=== PATIENT | female | born 1995 | race African-American/Black ===

== ENCOUNTER 2017-07-21 16:39 | Emergency (ER) | payer BC ==
[~2017-07-21] VITALS: Ht 154.9 cm; Wt 73.2 kg
[2017-07-21 16:44] VITALS: TEMP 36.5; Ht 154.9 cm; Wt 73.2 kg
[2017-07-21 18:05] LABS: BASO % 0.4 %; BASO ABS # 0.03 K/uL (0-0.2); EOS % 6.3 %; EOS ABS # 0.45 K/uL (0-0.5); HEMATOCRIT 37.5 % (37-47); HEMOGLOBIN 12.1 g/dL (12.0-16.0); IG# 0.01 K/uL (0.00-0.02); LYMPH % 41.9 %; LYMPH ABS # 3.01 K/uL (1.2-3.4); MEAN CELL VOLUME 82.8 fL (80-100); MEAN CORPUSCULAR HEMOGLOBIN 26.7 pg (25-34); MEAN CORPUSCULAR HGB CONC 32.3 g/dl (32-36); MEAN PLATELET VOLUME 11.4 fL (7.4-10.4); MONO % 6.8 %; MONO ABS # 0.49 K/uL (0.11-0.59); NEUT % 44.5 %; PLATELET COUNT 184 K/uL (130-400); RED CELL DISTRIBUTION WIDTH CV 14.8 % (11.5-14.5); RED CELL DISTRIBUTION WIDTH SD 44.9 fL (36.4-46.3); WHITE BLOOD COUNT 7.19 K/uL (4.8-10.8)
[2017-07-21 18:19] LABS: CALCIUM 8.6 mg/dl (8.5-10.1); CREATININE 0.92 mg/dl (0.60-1.20); POTASSIUM 3.6 mmol/L (3.5-5.1)
[2017-07-21 18:21] LABS: PTT PATIENT 28.4 SECONDS (21.0-31.0)
--- NOTE | 2017-07-21 18:58 | DIAGNOSTIC IMAGING REPORT ---
PELVIC COMPLETE NON OB CLINICAL HISTORY: Dysfunctional uterine bleeding COMPARISON STUDY: None FINDINGS: The uterus measured 6.5 cm. The endometrial stripe measured 2 mm. The right ovary measured 3.1 cm maximum dimension with normal vascular flow. The left ovary measured 3.3 cm maximum dimension with normal vascular flow. There is no ultrasonographic evidence of ovarian torsion. It should be noted that ovarian torsion can be present with normal Doppler ultrasonographic findings. There was no evidence of pathologic free pelvic fluid. IMPRESSION: Normal pelvic ultrasound. Multiple small sub-4 mm ovarian follicular cysts bilaterally The above report was generated using voice recognition software. It may contain grammatical, syntax or spelling errors. Electronically signed by: Abel Cordon M.D. 07/21/2017 6:57 PM Dictated Date/Time: 07/21/2017 6:56 PM
[2017-07-21] MEDS ORDERED: CRY28 PO (19:22)
[2017-07-21 19:32] VITALS: BP 117/69; PULSE 73; O2SAT 97
--- NOTE | 2017-07-21 19:39 | EMERGENCY ROOM VISIT NOTE ---
History First contact with patient: 17:35 Chief Complaint: VAGINAL BLEEDING Stated Complaint: PERIOD FOR 1 MONTH, PCOS History of Present Illness The patient is a 21 year old female who presents to the Emergency Room with complaints of vaginal bleeding for 1 month. The patient states that her periods started the third week of June and she has been bleeding since that time. The patient states that it is heavy. She states some days she has to change her ultra super tampon every 30 minutes. The patient admits to some lower abdominal cramping but has not taken anything for the cramping. The patient denies any nausea or vomiting. The patient denies . She does admit though that she is sexually active. The patient has a history of PCOS. She is followed by a tubing mill operator in her hometown. The patient is a [employer] student. The patient states that she recently was on Cryselle for control. She will get her menses every 3 months. The patient states when she continued to bleed after her normal menses should have been over she called her tubing mill operator and they told her to stop the control. The patient states she has had similar episodes of this in the past. They have changed her control pills several times. At one time she bled for 2 months straight. She does admit that it was not as heavy that time as it is currently. Review of Systems 10 system review was performed and was negative unless stated otherwise history of present illness. Past Medical/Surgical History PCOS cholecystectomy Social History Smoking Status: Never Smoker Alcohol Use: occasionally Marital Status: single Housing Status: lives with roommate Occupation Status: [employer] student Current/Historical Medications Scheduled Ethinyl Estradiol/Norgestrel (Cryselle-28), 1 TAB PO DAILY Physical Exam Vital Signs Date Time Temp Pulse Resp B/P (MAP) Pulse Ox O2 Delivery O2 Flow Rate FiO2 07/21/17 19:32 73 20 117/69 97 Room Air 07/21/17 16:44 36.5 84 16 137/79 99 Room Air Physical Exam GENERAL: 21-year-old female appears in no acute distress. MENTAL Status: Alert and oriented 3. MOUTH: Mucosa is moist NECK: Supple, no lymphadenopathy noted. No carotid bruits noted. LUNGS: Clear auscultation without wheezes rales or rhonchi. CARDIAC: Regular rate and rhythm without murmur. Pulses is full and equal throughout. BACK: No CVA tenderness noted. ABDOMEN: Positive bowel sounds all 4 quadrants. Soft, mild tenderness palpation in the right pelvic region otherwise nontender to palpation without organomegaly or masses. EXTREMITIES: No cyanosis or edema noted. Medical Decision & Procedures ER Provider Diagnostic Interpretation: PELVIC COMPLETE NON OB CLINICAL HISTORY: Dysfunctional uterine bleeding COMPARISON STUDY: None FINDINGS: The uterus measured 6.5 cm. The endometrial stripe measured 2 mm. The right ovary measured 3.1 cm maximum dimension with normal vascular flow. The left ovary measured 3.3 cm maximum dimension with normal vascular flow. There is no ultrasonographic evidence of ovarian torsion. It should be noted that ovarian torsion can be present with normal Doppler ultrasonographic findings. There was no evidence of pathologic free pelvic fluid. IMPRESSION: Normal pelvic ultrasound. Multiple small sub-4 mm ovarian follicular cysts bilaterally The above report was generated using voice recognition software. It may contain grammatical, syntax or spelling errors. Electronically signed by: Abel Cordon M.D. 07/21/2017 6:57 PM Laboratory Results 07/21/17 17:55 Red Blood Count 4.53, Mean Corpuscular Volume 82.8, Mean Corpuscular Hemoglobin 26.7, Mean Corpuscular Hemoglobin Concent 32.3, Mean Platelet Volume 11.4, Neutrophils (%) (Auto) 44.5, Lymphocytes (%) (Auto) 41.9, Monocytes (%) (Auto) 6.8, Eosinophils (%) (Auto) 6.3, Basophils (%) (Auto) 0.4, Neutrophils # (Auto) 3.20, Lymphocytes # (Auto) 3.01, Monocytes # (Auto) 0.49, Eosinophils # (Auto) 0.45, Basophils # (Auto) 0.03 07/21/17 17:55 Test 07/21/17 17:55 White Blood Count 7.19 K/uL (4.8-10.8) Red Blood Count 4.53 M/uL (4.2-5.4) Hemoglobin 12.1 g/dL (12.0-16.0) Hematocrit 37.5 % (37-47) Mean Corpuscular Volume 82.8 fL (80-100) Mean Corpuscular Hemoglobin 26.7 pg (25-34) Mean Corpuscular Hemoglobin Concent 32.3 g/dl (32-36) Platelet Count 184 K/uL (130-400) Mean Platelet Volume 11.4 fL (7.4-10.4) Neutrophils (%) (Auto) 44.5 % Lymphocytes (%) (Auto) 41.9 % Monocytes (%) (Auto) 6.8 % Eosinophils (%) (Auto) 6.3 % Basophils (%) (Auto) 0.4 % Neutrophils # (Auto) 3.20 K/uL (1.4-6.5) Lymphocytes # (Auto) 3.01 K/uL (1.2-3.4) Monocytes # (Auto) 0.49 K/uL (0.11-0.59) Eosinophils # (Auto) 0.45 K/uL (0-0.5) Basophils # (Auto) 0.03 K/uL (0-0.2) RDW Standard Deviation 44.9 fL (36.4-46.3) RDW Coefficient of Variation 14.8 % (11.5-14.5) Immature Granulocyte % (Auto) 0.1 % Immature Granulocyte # (Auto) 0.01 K/uL (0.00-0.02) Prothrombin Time 10.3 SECONDS (9.0-12.0) Prothromb Time International Ratio 1.0 (0.9-1.1) Activated Partial Thromboplast Time 28.4 SECONDS (21.0-31.0) Partial Thromboplastin Ratio 1.1 Anion Gap 5.0 mmol/L (3-11) Est Creatinine Clear Calc Drug Dose 89.2 ml/min Estimated GFR () 103.9 Estimated GFR (Non- 89.6 BUN/Creatinine Ratio 12.4 (10-20) Calcium Level 8.6 mg/dl (8.5-10.1) ED Course The patient was evaluated. CBC and differential, renal profile was ordered. Urine dip was negative for . Pelvic ultrasound was ordered and interpreted by the radiologist as above with multiple sub-4 cm follicular cysts bilaterally but no other acute findings. Labs are reviewed and were unremarkable. The patient was informed of all findings. The patient was discharged home in stable condition.. Medical Decision Differential diagnosis include ovarian torsion, endometriosis, fibroids, dysfunctional uterine bleeding, [place] Drug Monitoring Program Search Results: patient reviewed within database Medication Reconcilliation Current Medication List: was personally reviewed by al Blood Pressure Screening Patient's blood pressure: Normal blood pressure Impression Primary Impression: Abnormal vaginal bleeding Departure Information Dispostion Home / Self-Care Condition GOOD Referrals No Doctor, Assigned (PCP) Forms HOME CARE DOCUMENTATION FORM, IMPORTANT VISIT INFORMATION, WORK / SCHOOL INSTRUCTIONS Patient Instructions My [facility] Expect Labs Additional Instructions Call your [employer] tomorrow and let them know that you were in the emergency room and had a normal ultrasound and CBC and complete metabolic profile and coags which was normal. She may want to see you in the office prior to your scheduled appointment in 2 weeks. If symptoms worsen in the interim, return to ER.
== END 2017-07-21 20:00 | disposition home or self-care (01) ==
LOC: EDBD 16:42 → C.EDB 16:42 → C.EDC 20:00
DX: N93.9 Abnormal uterine and vaginal bleeding, unspecified (principal); N83.01 Follicular cyst of right ovary; N83.02 Follicular cyst of left ovary; E28.2 Polycystic ovarian syndrome; Z79.3 Long term (current) use of hormonal contraceptives; Z90.49 Acquired absence of other specified parts of digestive tract